=== PATIENT | male | born 1950 ===

== ENCOUNTER 2021-05-02 08:13 | Day surgery (SDC) | payer MEDICARE, BC ==
[~2021-05-02] VITALS: Ht 188 cm; Wt 95.4 kg
[~2021-05-02 08:13] MED LIST: ACET1TAB33 PO; ACETAMINOPHEN 500 MG TABLET PO PRN; ALPR0.5T6 PO; AMLO-186 PO; ASPI81TA59 PO; ATOR10TA60 PO; CARV12.511 PO; CARV25TA2 PO; CARV6.2511 PO; DIGO125T3 PO; FURO80TA3 PO; HYDR-2759 PO; HYDR-2761 PO; HYDROmorphone 2 MG/ML INJ. IVP PRN; IV RINGERS,LACTATED 1000ML 1,000 ML IV SCH; LORA0.5T96 PO; MORPHINE SULFATE 2 MG/ML INJ. IVP PRN; OMEP40CA7 PO; OXYC1TAB15 PO; POTA-121 PO; PROCHLORPERAZINE 10 MG/2 ML VIAL. IVP PRN; ZOLP5TAB PO; fentaNYL PF VIAL 100 MCG/2 ML VIAL IVP PRN
[2021-05-02 08:57] VITALS: BP 155/92
[2021-05-02 09:25] LABS: CALCIUM 8.6 mg/dL (8.5-10.1); CREATININE 0.9 mg/dL (0.7-1.3); GFR 83.2; POTASSIUM 3.5 mmol/L (3.5-5.1)
[2021-05-02] MEDS ORDERED: BUPIVACAINE-EPI 0.25% 30 ML VIAL KIT. ONE (10:35)
[2021-05-02] MEDS ORDERED: PROPOFOL 10 MG/ML (20ML) VIAL. IV ONE ×2 (10:40→11:14)
[2021-05-02] MEDS ORDERED: LIDOCAINE 2% PF 5 ML VIAL. ONE (10:40)
[2021-05-02] MEDS ORDERED: fentaNYL PF VIAL 100 MCG/2 ML VIAL ONE (10:41)
[2021-05-02] MEDS ORDERED: SUCCINYLCHOLINE 200 MG/10 ML VIAL. ONE (10:45)
[2021-05-02] MEDS ORDERED: ONDANSETRON PF 4 MG/2 ML VIAL. ONE (10:54)
[2021-05-02] MEDS ORDERED: SEVOFLURANE 31 TO 60 MINUTES. IH ONE (10:54)
[2021-05-02] MEDS ORDERED: DEXAMETHASONE SOD PHOS 4 MG/ML VIAL ONE (10:54)
[2021-05-02] MEDS ORDERED: KETAMINE HCL IN NACL, ISO-OSM 50 MG/5 ML SYRINGE ONE (11:13)
[2021-05-02] MEDS ORDERED: ePHEDrine PF IN SALINE 50 MG/10 ML SYRINGE. IV ONE (11:24)
[2021-05-02] MEDS ORDERED: GLYCOPYRROLATE 1 MG/5 ML VIAL. ONE (11:36)
--- NOTE | 2021-05-02 11:42 | PDOC4 ---
Operative Note Operative Note Date: May 022021 at 11:39 AM Preoperative diagnosis: Left chest wall mass Postoperative diagnosis: Same Procedure: Wide excision of left chest wall mass Surgeon: Sami Specimen: Left chest wall mass marked long stitch lateral short stitch superior Dictation: Patient is a 70-year-old male with complaints of a bleeding fungating mass of his left chest is been present for more years than he can remember. Procedure of excision was explained to the patient detail was benefits were also discussed including bleeding infection alternatives this procedure also discussed with the patient who seemed to understand and gave a verbal written consent to have procedure performed. Patient was taken to the operating room placed in the supine position general anesthesia was initiated once patient was sleeping intubated is chest was prepped and draped usual sterile fashion using Betadine scrub and solution. The fungating mass measured 7 x 7 cm an elliptical incision was marked around the mass at 14 cm which was injected with quarter percent Marcaine with epinephrine once this was complete an elliptical incision was made with 10 blade scalpel is carried down through subcutaneous tissues electrocautery right hemostasis and a fully excise the mass which was sent for pathology. The wound edges were undermined with electrocautery to allow for closure wound was closed in 2 layers of deep layer running 3-0 Vicryl and the skin was reapproximated for subcuticular Monocryl Mastisol Steri-Strips and island dressing were applied patient was awakened and extubated in the operating room taken to recovery in stable condition all sponge instrument needle counts listed as correct estimated blood loss 30 mL ANGIE NAGEL MD May 02, 2021 11:42
[2021-05-02] MEDS ORDERED: OXYC-325 PO (11:45)
--- NOTE | 2021-05-02 11:47 | DISCH ---
DISCHARGE INSTRUCTIONS Condition on Discharge Condition on Discharge: Stable Activity After Discharge Activity Instructions for Disc: Activity as tolerated Diet after Discharge Diet after Discharge: Regular Wound Incision Care Other wound/incision instructi: May shower in 24 hours Contacting the after DC Call your doctor for: If your condition worsens Follow-Up Follow up with: Dr. Nagel in 2-week ANGIE NAGEL MD May 02, 2021 11:47
[2021-05-02] MEDS ORDERED: oxyCODONE/APAP 5/325 1 TAB TABLET PO ONE (12:30)
[2021-05-02 12:45] VITALS: BP 119/80
--- NOTE | 2021-05-06 09:09 | PATHOLOGY ---
[facility] Accession Number: [id number] . 01 Material submitted: . chest - WLE L CHEST WALL- LONG STITCH LATERAL, SHORT STITCH SUPERFICIAL. Modifiers: left, wall . 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 See comment. - Inked margins of excision free of neoplasm. (JPM:adithya; 05/03/2021) [facility] 05/06/2021 0846 Local . 02 Comment: Sections of the left chest wall mass excision reveal a large polypoid exophytic and invasive moderately to poorly differentiated squamous cell carcinoma. The tumor does invade subcutaneous tissue. There is focal squamous cell carcinoma in situ identified along the peripheral edges of the mass. The margins of excision are free of neoplasm. There are a few foci suspicious for lymphovascular invasion. (JPM:adithya; 05/03/2021) . 02 Electronically signed: . Praveen Pierce MD, Pathologist NPI- [id number] . 01 Gross description: . The specimen is received in formalin, labeled "Santo, Monty, WLE L chest wall" and the specimen consists of an oriented elliptical skin excision (12.4 x 6.0 cm, excised to a depth of 1.9 cm) which has been previously oriented (per the requisition) with a long stitch designating the lateral tip and a short stitch designating the superior edge. The long suture is placed at the 12 o'clock tip with the short suture placed at the 9 o'clock edge. The lopes wrinkled epidermis displays a lopes-pink to brown, rubbery, well-circumscribed, exophytic mass (5.6 x 5.3 x 3.0 cm (height)) that comes to within 3.4 cm from the nearest 6:00 tip, 5.3 cm from the 12:00 tip, 0.8 cm from the nearest 4:00 edge margin and 1.0 cm from the nearest 8:00 margin. The surgical margin is inked green from 12:00-3:00, orange from 3:00-6:00, black from 6:00-9:00 and red from 9:00-12:00. The specimen is serially sectioned to reveal lopes-pink granular and solid cut surfaces. The mass comes to within 2.3 cm from the nearest deepest red margin, 1.2 cm from the deepest black margin, 0.6 cm from the deepest orange margin, and 3.2 cm from the deepest green margin and involves the underlying fat (up to at least 0.3 cm). Bobbin Winder Tender sections are submitted sequentially, per diagram. ([facility]; 05/02/2021) DKA/DKA 05/02/[address] [place] [address] . 02 Pathologist provided ICD-10: C44.529 . 02 CPT . 928220 Specimen Comment: A courtesy copy of this report has been sent to [phone] Specimen Comment: Report sent to Performed at: 01 [facility] [address] [facility] [address], [place] [id number] MD Joon Dennis MD Phone: [phone] Performed at: 02 [facility] [address] [place] [id number] MD Praveen Pierce MD Phone: [phone]
== END 2021-05-02 13:10 | disposition home or self-care (01) ==
LOC: SURG 08:13
PROVIDERS: ATTEND Surgery
DX: R22.2 Localized swelling, mass and lump, trunk (principal); C44.529 Squamous cell carcinoma of skin of other part of trunk; I25.10 Atherosclerotic heart disease of native coronary artery without angina pectoris; I10 Essential (primary) hypertension; I48.91 Unspecified atrial fibrillation; E78.00 Pure hypercholesterolemia, unspecified; M19.90 Unspecified osteoarthritis, unspecified site; F17.210 Nicotine dependence, cigarettes, uncomplicated; Z79.899 Other long term (current) drug therapy; Z98.890 Other specified postprocedural states; Z79.82 Long term (current) use of aspirin; Z88.8 Allergy status to other drugs, medicaments and biological substances
CPT/HCPCS: 11606; 36415; 80048; A4364; A4930; A6402; J0330; J0690; J1100; J2405; J2704; J3010; J3490; 88305; A4452